=== PATIENT | male | born 1950 | race Caucasian/White ===

== ENCOUNTER → 2019-02-23 15:13 | Outpatient (CLI) | payer MEDICARE, OTHER, SELFPAY ==
[2019-02-23 16:23] LABS: Hemoglobin A1C 6.2 % (0.0-7.0)
[2019-02-23 16:39] LABS: Alanine Aminotransferase 41 U/L (12-78); Alkaline Phosphatase 74 U/L (46-116); Sodium 144 mmol/L (136-145); Total Protein,Serum 6.9 gm/dL (6.4-8.2)
[2019-02-23 16:54] LABS: Albumin Level 4.1 gm/dL (3.4-5.0); Albumin/Globulin Ratio 1.5 (1.1-1.8); Anion Gap 14.4 mEq/L (5-15); Aspartate Amino Transferase 29 U/L (15-37); Bilirubin,Total 0.6 mg/dL (0.2-1.0); Blood Urea Nitrogen 17 mg/dL (7-18); Calcium 9.2 mg/dL (8.5-10.1); Carbon Dioxide 30 mmol/L (21.0-32.0); Chloride 104 mmol/L (98-107); Creatinine,Serum 1.21 mg/dL (0.70-1.30); Estimated Glomerular Filt Rate 59 ml/min (>60); Free T4 (Free Thyroxine) 0.81 ng/dl (0.76-1.46); GFR (African American) 72 ML/MIN (>60); Globulin 2.8 gm/dl (1.3-3.2); Glucose 107 mg/dL (74-106); Potassium 4.4 mmoL/L (3.5-5.1)
== END ==
PROVIDERS: Visit Provider Nurse Practitioner Family
DX: R73.9 Hyperglycemia, unspecified (principal); I10 Essential (primary) hypertension
CPT/HCPCS: 36415; 80053; 83036; 84439

== ENCOUNTER → 2021-08-30 11:41 | Outpatient (CLI) | payer MEDICARE, OTHER, SELFPAY ==
[2021-08-30 12:38] LABS: Basophils % 0.5 % (0.1-2.0); Eosinophils # 0.2 K/mm3 (0.0-0.4); Eosinophils % 2.4 % (0.1-12.0); Hematocrit 48.6 % (42.0-52.0); Hemoglobin 15.7 g/dL (14.1-18.0); Lymphocytes # 2.1 K/mm3 (0.7-4.5); Lymphocytes % 33.7 % (10-50); Mean Corpuscular HGB Conc 32.3 g/dL (31.8-35.4); Mean Corpuscular Hemoglobin 31.7 pg (27.0-31.2); Mean Platelet Volume 7.9 fl (7.4-10.4); Monocytes # 0.5 K/mm3 (0.1-1.0); Monocytes % 7.3 % (1.7-9.3); Neutrophils # 3.5 K/mm3 (1.8-7.8); Neutrophils % 56.1 % (37.0-80.0); Platelet Count 243 K/mm3 (142-424); Red Blood Count 4.96 M/mm3 (4.60-6.20); Red Cell Distribution Width 13.5 % (11.5-17.5); White Blood Count 6.3 K/mm3 (4.8-10.8)
[2021-08-30 13:31] LABS: Alanine Aminotransferase 43 U/L (12-78); Albumin Level 4.1 g/dl (3.5-5.0); Albumin/Globulin Ratio 1.7 (1.1-1.8); Alkaline Phosphatase 81 U/L (38-126); Anion Gap 11.7 mEq/L (5-15); Aspartate Amino Transferase 46 U/L (17-59); Bilirubin,Total 0.6 mg/dl (0.2-1.3); Blood Urea Nitrogen 17 mg/dl (9-20); Calcium 9.1 mg/dl (8.4-10.2); Carbon Dioxide 28 mmol/L (22.0-30.0); Chloride 106 mmol/L (98-107); Chol/HDL Ratio 3.1 (1-3.5); Cholesterol 157 mg/dl (140-200); Estimated Glomerular Filt Rate 73 ml/min (>60); GFR (African American) 89 ML/MIN (>60); Globulin 2.4 g/dL (1.3-3.2); Glucose 131 mg/dl (74-100); HDL Cholesterol 50 mg/dl (40-60); Potassium 4.7 mmoL/L (3.5-5.1); Sodium 141 mmol/L (136-145); Total Protein,Serum 6.5 g/dl (6.3-8.2); Triglycerides 144 mg/dl (30-150); VLDL Cholesterol 29 mg/dL (0-40)
[2021-08-30 13:42] LABS: Direct LDL Cholesterol 74.22 mg/dL (100-129)
[2021-08-30 14:02] LABS: Prostate Specific Ag Screen 2.3 ng/ml (0.0-4.0)
== END ==
PROVIDERS: Visit Provider Internal Medicine Adolescent Medicine
DX: E78.5 Hyperlipidemia, unspecified (principal); N40.0 Benign prostatic hyperplasia without lower urinary tract symptoms; Z12.5 Encounter for screening for malignant neoplasm of prostate
CPT/HCPCS: 36415; 80053; 80061; 85025; G0103

== ENCOUNTER → 2021-09-13 11:53 | Outpatient (CLI) | payer MEDICARE, OTHER, SELFPAY ==
[2021-09-13 12:26] LABS: Hemoglobin A1C 6.3 % (4.0-6.0)
[2021-09-13 13:18] LABS: Chloride 103 mmol/L (98-107)
[2021-09-13 13:19] LABS: Potassium 4.6 mmoL/L (3.5-5.1); Sodium 139 mmol/L (136-145)
[2021-09-13 13:21] LABS: Blood Urea Nitrogen 16 mg/dl (9-20); Estimated Glomerular Filt Rate 73 ml/min (>60); GFR (African American) 89 ML/MIN (>60)
[2021-09-13 13:22] LABS: Anion Gap 12.6 mEq/L (5-15); Calcium 9.1 mg/dl (8.4-10.2); Carbon Dioxide 28 mmol/L (22.0-30.0); Glucose 148 mg/dl (74-100)
== END ==
PROVIDERS: Visit Provider Internal Medicine Adolescent Medicine
DX: R73.9 Hyperglycemia, unspecified (principal); E87.5 Hyperkalemia
CPT/HCPCS: 36415; 80048; 83036

== ENCOUNTER 2022-11-30 12:50 | Emergency (ER) | payer MEDICARE, OTHER, SELFPAY ==
[2022-11-30] VITALS (9 sets, daily range): BP systolic 91–127; BP diastolic 56–81; PULSE 88–125; RESP 17–18; TEMP 36.6; O2SAT 97–99; BMI 24.5
--- NOTE | 2022-11-30 13:03 | CT_ITS ---
FINAL REPORT TECHNIQUE: Thin section axial images were obtained from the lung bases to the pubic symphysis without IV contrast. Coronal reconstruction images were obtained from the axial data. Exam was performed using dose reduction technique. CLINICAL HISTORY: RECTAL BLEEDING FINDINGS: There is a hyperdense lesion arising from the right kidney consistent with a cyst. There are no renal or ureteral stones. There is no hydronephrosis or perinephric stranding. There is cholelithiasis. The remaining unenhanced solid abdominal organs are unremarkable. There is no evidence of small bowel obstruction. There is servin diverticulosis. Subtle abnormal attenuation is seen surrounding the distal ascending colon as well as the mid and distal descending colon which could represent mild, acute diverticulitis or colitis. There is no perforation or abscess. The appendix is normal. Prostate is enlarged. There is abnormal soft tissue in the right anterior pelvis, at the orifice of the right inguinal canal, which could be postsurgical. There is no lymphadenopathy or ascites. There are fractures of the right L1 and L2 transverse processes which are age indeterminate. Fractures of the left L1 and L2 transverse processes appear old. IMPRESSION: Servin diverticulosis with possible, early diverticulitis or colitis of the distal ascending and descending colon. Cholelithiasis. Age indeterminate fractures of the right L1 and L2 transverse processes. Reviewed, Interpreted and Dictated by Laura Barrow MD Transcribed by Albina Greene Authenticated and [facility]
[2022-11-30 13:17] LABS: Basophils % 0.3 % (0.1-2.0); Hematocrit 35.8 % (42.0-52.0); Lymphocytes # 2.2 K/mm3 (0.7-4.5); Lymphocytes % 14.4 % (10-50); Mean Corpuscular HGB Conc 33.6 g/dL (31.8-35.4); Mean Corpuscular Hemoglobin 31.9 pg (27.0-31.2); Mean Corpuscular Volume 95.1 fl (80-94); Mean Platelet Volume 8.2 fl (7.4-10.4); Monocytes # 0.5 K/mm3 (0.1-1.0); Monocytes % 3.4 % (1.7-9.3); Neutrophils # 12.7 K/mm3 (1.8-7.8); Neutrophils % 81.9 % (37.0-80.0); Platelet Count 345 K/mm3 (142-424); Red Blood Count 3.76 M/mm3 (4.60-6.20); Red Cell Distribution Width 13.3 % (11.5-17.5); White Blood Count 15.5 K/mm3 (4.8-10.8)
--- NOTE | 2022-11-30 13:17 | HMH.EDGIBL ---
Discharge Plan Disposition Patient Disposition: Home, Self-Care Prescriptions Prescriptions: New metronidazole 500 mg Tablet 500 mg PO TID Qty: 21 0RF levofloxacin 500 mg tablet 500 mg PO DAILY Qty: 7 0RF Referrals Follow up/Referrals: Provider,ReferralMD [Referring] - See instructions Clinical Impressions Clinical Impression: Lower gastrointestinal hemorrhage, Diverticulitis Instructions Patient Instructions: DI for Gastrointestinal Bleeding Discharge ED Provider: Scotty Paris GI Bleed HPI General Chief complaint: GI Bleed Stated complaint: rectal bleeding, weakness Time Seen by Provider: 11/30/22 15:10 Mode of Arrival: EMS Source of Information: Patient, Spouse, Relative and Medical Record Limitations: No Limitations Description of Symptoms (Recalled from ER Triage Doc. by RN): PT BROUGHT IN VIA EMS FOR DARK/BRIGHT RED BLEEDING FROM RECTUM. PT DENIES ABDOMINAL PAIN. REPORTS DIARRHEA YESTERDAY AM, LARGE AMOUNT OF BLOOD NOTED LAST NIGHT WITH BM. PT REPORTS NAUSEA ON OCCASION. HX OF HEMORRHOIDS History of Present Illness HPI Narrative: blood in bowels today with no def abd pain has hx of hemmorroids - no vomiting MD complaint: gross hematochezia Onset (ago): hour(s) Consistency: intermittent Severity: moderate Associated symptoms: abdominal pain Related Data Previous Rx's Medication Instructions Recorded levofloxacin 500 mg tablet 500 mg PO DAILY #7 tabs 11/30/22 metronidazole 500 mg tablet 500 mg PO TID #21 tabs 11/30/22 Allergies Allergy/AdvReac Type Severity Reaction Status Date / Time ERYTHROMYCIN Allergy Unknown FAMILY Uncoded 11/02/17 15:08 REACTION ONLY PFSH PFSH Disclaimer: The information contained in this section may have been updated after the patient was seen, as this information can be updated by other users. Medical History (Updated 11/30/22 @ 18:05 by Scotty Paris MD) Diabetes GERD (gastroesophageal reflux disease) Surgical History (Updated 11/30/22 @ 13:17 by Luzma Pacheco RN) H/O inguinal hernia repair Hx of tonsillectomy Family History (Updated 11/30/22 @ 13:17 by Luzma Pacheco RN) No significant family history Social History (Updated 11/30/22 @ 13:17 by Luzma Pacheco RN) Smoking Status: Current some day smoker alcohol intake: current current occupational status: retired Travel in the last 8 weeks: None ROS Obtained: Yes All systems reviewed & no additional complaints except as documented Physical Exam General General appearance: alert Head Head exam: normocephalic Eye Eye exam: Present PERRL and EOMI ENT ENT exam: Present mucous membranes moist Neck Neck exam: Present full ROM and trachea midline Respiratory Respiratory exam: Present normal lung sounds bilaterally; Absent respiratory distress Cardiovascular Cardiovascular exam: Present regular rate and systolic murmur Abdominal Exam Abdominal exam: Present soft and tenderness Abdominal tenderness: Present diffuse and mild Rectal Exam Rectal exam: Present normal rectal tone, heme (+) stool and hemorrhoids Extremities Exam Extremities exam: Present full ROM Neurological Exam Neurological exam: Present alert, oriented X3 and CN II-XII intact Psychiatric Psychiatric exam: Present normal affect Skin Skin exam: Absent rash Medical Decision Making Medical Records Medical records reviewed: Yes I reviewed the patient's medical records. Gregg Inquiry Pt receiving controlled substance: No Vital Signs: 11/30/22 12:51 11/30/22 13:00 11/30/22 13:30 Temperature 97.8 F Temperature Source Oral Pulse Rate 106 H 95 H Pulse Rate [Orthostatic Lying] Pulse Rate [Orthostatic Sitting] Pulse Rate [Orthostatic Standing] Pulse Rate [Radial] 105 H Respiratory Rate 17 Blood Pressure 127/79 125/81 Blood Pressure [Orthostatic Lying] Blood Pressure [Orthostatic Sitting] Blood Pressure [Orthostatic Standing] Blood Pressure [Rig
[2022-11-30 13:18] LABS: Alanine Aminotransferase 37 U/L (12-78); Albumin Level 3.8 g/dl (3.5-5.0); Albumin/Globulin Ratio 1.8 (1.1-1.8); Alkaline Phosphatase 74 U/L (38-126); Anion Gap 16.4 mEq/L (5-15); Aspartate Amino Transferase 38 U/L (17-59); Bilirubin,Total 0.5 mg/dl (0.2-1.3); Blood Urea Nitrogen 25 mg/dl (9-20); Calcium 8.2 mg/dl (8.4-10.2); Carbon Dioxide 21 mmol/L (22.0-30.0); Chloride 102 mmol/L (98-107); Creatinine Clearance Estimated 71 mL/min (50-200); Estimated Glomerular Filt Rate 59 ml/min (>60); GFR (African American) 72 ML/MIN (>60); Globulin 2.1 g/dL (1.3-3.2); Glucose 276 mg/dl (74-100); Potassium 4.4 mmoL/L (3.5-5.1); Sodium 135 mmol/L (136-145); Total Protein,Serum 5.9 g/dl (6.3-8.2)
[2022-11-30 13:19] LABS: MANUAL DIFFERENTIAL MANUAL DIFFERENTIAL (MANUAL DIFF)
--- NOTE | 2022-11-30 13:20 | PC.NURSE ---
PT TO CT AT THIS TIME
--- NOTE | 2022-11-30 13:24 | PC.NURSE ---
PT RETURNED FROM CT
[2022-11-30 13:26] LABS: Lymphocytes % 10 % (10-50); Monocytes % 4 % (2-9); Neutrophils % 86 % (42-76); Platelet Estimate Normal; RBC Morphology Normal; Total Cells Counted 100
--- NOTE | 2022-11-30 13:27 | PC.NURSE ---
FAMILY AT BEDSIDE
--- NOTE | 2022-11-30 13:43 | PC.NURSE ---
PT ASSISTED TO BR
--- NOTE | 2022-11-30 13:48 | PC.NURSE ---
PT RETURNED TO ROOM, NO BLOODY STOOL NOTED. SMALL AMOUNT OF RED BLOOD NOTED TO TOILET TISSUE
--- NOTE | 2022-11-30 15:00 | PC.NURSE ---
1500 PT AND FAMILY UPDATED, NO NEEDS AT THIS TIME
[2022-11-30 15:41] LABS: C-Reactive Protein 1.1 mg/L (0-4)
[2022-11-30 15:55] LABS: Procalcitonin 0.066 ng/mL (0.0-2.0)
--- NOTE | 2022-11-30 15:55 | PC.NURSE ---
DR. CAMEJO AT BEDSIDE
[2022-11-30 16:58] LABS: Erythrocyte Sedimentation Rate 6 mm/hr (0-20)
--- NOTE | 2022-11-30 17:06 | PC.NURSE ---
CHECKED ON PT AT THIS TIME, PT STATES NO NEEDS AT THIS TIME, SITTING UP IN BED. IVF INFUSING. FAMILY AT BS
--- NOTE | 2022-11-30 17:19 | PC.NURSE ---
ROUNDED ON PT, SITTING UP IN BED TALKING WITH FAMIY. REPORTS FEELING BETTER. NO NEEDS AT THIS TIME
--- NOTE | 2022-11-30 17:53 | PC.NURSE ---
DR CAMEJO AT BEDSIDE TO UPDATE PT AND FAMILY
[2022-11-30 18:08] LABS: Occult Blood,Stool Positive (Negative)
== END 2022-11-30 18:35 | disposition home or self-care (01) ==
PROVIDERS: Emergency Provider Emergency Medicine; PCP Internal Medicine Adolescent Medicine
DX: K92.2 Gastrointestinal hemorrhage, unspecified (principal); K21.9 Gastro-esophageal reflux disease without esophagitis; F17.210 Nicotine dependence, cigarettes, uncomplicated; Z90.09 Acquired absence of other part of head and neck
CPT/HCPCS: 74176; 80053; 82272; 84145; 85007; 85025; 85651; 86140; 96360; 99285; G0328

== ENCOUNTER → 2023-07-02 12:58 | Outpatient (CLI) | payer MEDICARE, OTHER, SELFPAY ==
[2023-07-02 13:27] LABS: Basophils % 0.5 % (0.1-2.0); Eosinophils # 0.1 K/mm3 (0.0-0.4); Eosinophils % 1.9 % (0.1-12.0); Hematocrit 48.7 % (42.0-52.0); Hemoglobin 15.8 g/dL (14.1-18.0); Lymphocytes % 27.5 % (10-50); Mean Corpuscular HGB Conc 32.5 g/dL (31.8-35.4); Mean Corpuscular Hemoglobin 29.8 pg (27.0-31.2); Mean Corpuscular Volume 91.8 fl (80-94); Mean Platelet Volume 7.6 fl (7.4-10.4); Monocytes # 0.5 K/mm3 (0.1-1.0); Monocytes % 7.4 % (1.7-9.3); Neutrophils # 4.5 K/mm3 (1.8-7.8); Neutrophils % 62.8 % (37.0-80.0); Platelet Count 273 K/mm3 (142-424); White Blood Count 7.2 K/mm3 (4.8-10.8)
[2023-07-02 14:27] LABS: Chloride 102 mmol/L (98-107); Potassium 4.4 mmoL/L (3.5-5.1); Sodium 139 mmol/L (136-145)
[2023-07-02 14:29] LABS: Alanine Aminotransferase 22 U/L (12-78); Anion Gap 12.4 mEq/L (5-15); Aspartate Amino Transferase 29 U/L (17-59); Blood Urea Nitrogen 18 mg/dl (9-20); Carbon Dioxide 29 mmol/L (22.0-30.0); Estimated Glomerular Filt Rate 65 ml/min (>60); GFR (African American) 79 ML/MIN (>60)
[2023-07-02 14:30] LABS: Albumin/Globulin Ratio 1.5 (1.1-1.8); Alkaline Phosphatase 97 U/L (38-126); Bilirubin,Total 0.5 mg/dl (0.2-1.3); Calcium 9.8 mg/dl (8.4-10.2); Chol/HDL Ratio 2.7 (1-3.5); Cholesterol 167 mg/dl (140-200); Globulin 2.6 g/dL (1.3-3.2); Glucose 120 mg/dl (74-100); HDL Cholesterol 61 mg/dl (40-60); Total Protein,Serum 6.6 g/dl (6.3-8.2); Triglycerides 70 mg/dl (30-150); VLDL Cholesterol 14 mg/dL (0-40)
[2023-07-02 14:41] LABS: Direct LDL Cholesterol 78.42 mg/dL (100-129)
[2023-07-02 16:17] LABS: Hemoglobin A1C 6.1 % (4.0-6.0)
== END ==
PROVIDERS: PCP Internal Medicine Adolescent Medicine; Visit Provider Internal Medicine Adolescent Medicine
DX: E11.69 Type 2 diabetes mellitus with other specified complication (principal); E78.5 Hyperlipidemia, unspecified; K21.9 Gastro-esophageal reflux disease without esophagitis
CPT/HCPCS: 36415; 80053; 80061; 83036; 85025

== ENCOUNTER 2024-01-01 11:07 | Outpatient (CLI) | payer MEDICARE, OTHER, SELFPAY ==
[2024-01-01 11:35] LABS: Basophils % 0.4 % (0.1-2.0); Eosinophils # 0.1 K/mm3 (0.0-0.4); Eosinophils % 0.9 % (0.1-12.0); Hematocrit 47.1 % (42.0-52.0); Hemoglobin 15.9 g/dL (14.1-18.0); Lymphocytes % 23.4 % (10-50); Mean Corpuscular HGB Conc 33.7 g/dL (31.8-35.4); Mean Corpuscular Volume 95.1 fl (80-94); Mean Platelet Volume 7.3 fl (7.4-10.4); Monocytes # 0.5 K/mm3 (0.1-1.0); Monocytes % 6.1 % (1.7-9.3); Neutrophils % 69.2 % (37.0-80.0); Platelet Count 247 K/mm3 (142-424); Red Blood Count 4.96 M/mm3 (4.60-6.20); Red Cell Distribution Width 13.6 % (11.5-17.5); White Blood Count 8.7 K/mm3 (4.8-10.8)
[2024-01-01 11:50] LABS: Hemoglobin A1C 5.9 % (4.0-6.0)
[2024-01-01 12:32] LABS: Chloride 109 mmol/L (98-107); Sodium 138 mmol/L (136-145)
[2024-01-01 12:35] LABS: Alanine Aminotransferase 24 U/L (12-78); Albumin Level 4.3 g/dl (3.5-5.0); Albumin/Globulin Ratio 1.7 (1.1-1.8); Alkaline Phosphatase 105 U/L (38-126); Aspartate Amino Transferase 30 U/L (17-59); Bilirubin,Total 0.9 mg/dl (0.2-1.3); Blood Urea Nitrogen 14 mg/dl (9-20); Calcium 9.1 mg/dl (8.4-10.2); Carbon Dioxide 28 mmol/L (22.0-30.0); Cholesterol 164 mg/dl (140-200); Estimated Glomerular Filt Rate 73 ml/min (>60); GFR (African American) 88 ML/MIN (>60); Globulin 2.5 g/dL (1.3-3.2); Glucose 130 mg/dl (74-100); Total Protein,Serum 6.8 g/dl (6.3-8.2); Triglycerides 116 mg/dl (30-150); VLDL Cholesterol 23 mg/dL (0-40)
[2024-01-01 12:36] LABS: HDL Cholesterol 54 mg/dl (40-60)
[2024-01-01 13:10] LABS: Direct LDL Cholesterol 76.69 mg/dL (100-129)
[2024-01-01 13:53] LABS: Prostate Specific Ag Screen 5.7 ng/ml (0.0-4.0)
== END 2024-01-01 23:59 ==
PROVIDERS: PCP Internal Medicine Adolescent Medicine; Visit Provider Internal Medicine Adolescent Medicine
DX: E11.69 Type 2 diabetes mellitus with other specified complication (principal); E78.5 Hyperlipidemia, unspecified; N40.0 Benign prostatic hyperplasia without lower urinary tract symptoms; Z12.5 Encounter for screening for malignant neoplasm of prostate
CPT/HCPCS: 36415; 80053; 80061; 83036; 85025; G0103

== ENCOUNTER 2024-07-20 11:16 | Outpatient (CLI) | payer MEDICARE, OTHER, SELFPAY ==
[2024-07-20 12:06] LABS: Basophils % 0.6 % (0.1-2.0); Eosinophils # 0.1 K/mm3 (0.0-0.4); Hematocrit 47.6 % (42.0-52.0); Hemoglobin 14.9 g/dL (14.1-18.0); Lymphocytes # 1.7 K/mm3 (0.7-4.5); Lymphocytes % 23.9 % (10-50); Mean Corpuscular HGB Conc 31.3 g/dL (31.8-35.4); Mean Corpuscular Hemoglobin 31.4 pg (27.0-31.2); Mean Corpuscular Volume 100.3 fl (80-94); Mean Platelet Volume 7.5 fl (7.4-10.4); Monocytes # 0.5 K/mm3 (0.1-1.0); Monocytes % 6.6 % (1.7-9.3); Neutrophils # 4.8 K/mm3 (1.8-7.8); Neutrophils % 67.9 % (37.0-80.0); Platelet Count 244 K/mm3 (142-424); Red Blood Count 4.75 M/mm3 (4.60-6.20); Red Cell Distribution Width 14.1 % (11.5-17.5); White Blood Count 7.1 K/mm3 (4.8-10.8)
[2024-07-20 12:16] LABS: Hemoglobin A1C 5.9 % (4.0-6.0)
[2024-07-20 12:39] LABS: Alanine Aminotransferase 22 U/L (12-78); Albumin Level 3.9 g/dl (3.5-5.0); Albumin/Globulin Ratio 1.5 (1.1-1.8); Alkaline Phosphatase 76 U/L (38-126); Anion Gap 7.4 mEq/L (5-15); Aspartate Amino Transferase 29 U/L (17-59); Bilirubin,Total 0.9 mg/dl (0.2-1.3); Blood Urea Nitrogen 14 mg/dl (9-20); Calcium 9.3 mg/dl (8.4-10.2); Carbon Dioxide 29 mmol/L (22.0-30.0); Chloride 106 mmol/L (98-107); Chol/HDL Ratio 2.5 (1-3.5); Cholesterol 149 mg/dl (140-200); Estimated Glomerular Filt Rate 65 ml/min (>60); GFR (African American) 79 ML/MIN (>60); Globulin 2.6 g/dL (1.3-3.2); Glucose 124 mg/dl (74-100); HDL Cholesterol 59 mg/dl (40-60); Potassium 4.4 mmoL/L (3.5-5.1); Sodium 138 mmol/L (136-145); Total Protein,Serum 6.5 g/dl (6.3-8.2); Triglycerides 119 mg/dl (30-150); VLDL Cholesterol 24 mg/dL (0-40)
[2024-07-20 12:50] LABS: Direct LDL Cholesterol 61.93 mg/dL (100-129)
[2024-07-20 13:08] LABS: Prostate Specific Ag Screen 4.8 ng/ml (0.0-4.0)
== END 2024-07-20 23:59 | disposition home or self-care (01) ==
LOC: LAB 11:18
PROVIDERS: PCP Internal Medicine Adolescent Medicine; Visit Provider Internal Medicine Adolescent Medicine
DX: E11.69 Type 2 diabetes mellitus with other specified complication (principal); E78.5 Hyperlipidemia, unspecified; Z12.5 Encounter for screening for malignant neoplasm of prostate
CPT/HCPCS: 36415; 80053; 80061; 83036; 85025; G0103